=== PATIENT | female | born 1925 | race Caucasian/White ===

== ENCOUNTER 2017-01-23 15:31 | Emergency (ER) | payer MEDICARE, OTHER ==
[2017-01-23 16:45] LABS: Mean Corpuscular HGB CONC 32.3 g/dL (32.0-36.0); Mean Corpuscular Hemoglobin 30.1 pg (27.0-31.0); Mean Platelet Volume 9.2 fL (7.4-10.4); Platelet Count 165 thou/uL (130-400); RBC Distribution Width 14.6 % (11.5-14.5); Red Blood Cell (RBC) Count 3.65 mill/uL (4.20-5.40); White Blood Cell (WBC) Count 9.3 thou/uL (4.8-10.8)
[2017-01-23 16:57] LABS: ALT (SGPT) 9 U/L (0-55); AST (SGOT) 12 U/L (5-34); Albumin 3.4 g/dL (3.4-4.8); Alkaline Phosphatase 47 U/L (40-150); Anion Gap 17 mmol/L (10-20); BUN (Urea Nitrogen) 21 mg/dL (9.8-20.1); Bilirubin, Total 0.5 mg/dL (0.2-1.2); Calc. Creatinine Clearance 0 mL/min (70-130); Calcium 9.2 mg/dL (7.8-10.44); Carbon Dioxide 35 mmol/L (23-31); Chloride 96 mmol/L (98-107); Estimated GFR-MDRD 66; Glucose 162 mg/dL (83-110); Potassium 4.8 mmol/L (3.5-5.1); Protein, Total 6.4 g/dL (5.8-8.1); Sodium 143 mmol/L (136-145)
[2017-01-23 17:00] LABS: #Basophils 0.1 thou/uL (0.0-0.2); #Lymphocytes 0.7 thou/uL (1.20-3.40); #Monocytes 0.5 thou/uL (0.11-0.59); %Basophils 0.6 % (0.0-1.0); %Eosinophils 0.1 % (0.0-10.0); %Lymphocytes 7.6 % (21.0-51.0); %Monocytes 5.4 % (0.0-10.0); %Neutrophils 86.3 % (42.0-75.0)
[2017-01-23 17:01] LABS: CKMB 1.7 ng/mL (0-6.6); Troponin I 0.127 ng/mL (< 0.028)
[2017-01-23] MEDS ORDERED: ALPRAZolam 0.5 MG TAB ONE (17:05)
[2017-01-23] MEDS ORDERED: Furosemide 40 MG/4 ML VIAL ONE (17:28)
--- NOTE | 2017-01-23 21:06 | RAD ---
PORTABLE CHEST 01/23/2017 COMPARISON: An AP portable film at 1554 is compared with a 12/28/2016 study. FINDINGS: The pulmonary edema has worsened, and pleural effusions are present and worse. The heart is mildly enlarged. The findings are consistent with worsening congestive heart failure. Degenerative change s are present, particular in the right glenohumeral joint. There has probably been old trauma here. IMPRESSION: Congestive heart failure. POS: HOME
== END 2017-01-23 18:01 | disposition short-term general hospital (02) ==
LOC: BURERS 15:31
DX: I48.91 Unspecified atrial fibrillation (principal); I11.0 Hypertensive heart disease with heart failure; I50.9 Heart failure, unspecified; E03.9 Hypothyroidism, unspecified; J44.9 Chronic obstructive pulmonary disease, unspecified
CPT/HCPCS: 36415; 71010; 80053; 82553; 83880; 84484; 85025; 93005; 96374; 96375; J1940; J3490